=== PATIENT | female | born 1955 ===

== ENCOUNTER 2020-07-26 15:49 | Emergency (ER) | payer BC, SELFPAY ==
[2020-07-26 18:09] VITALS: BP 136/81; PULSE 97; RESP 18; TEMP 37.4; O2SAT 96; BMI 26.4
--- NOTE | 2020-07-26 23:19 | ED.GENADULT ---
HPI - General Adult General Chief complaint: Upper Respiratory Symptoms Stated complaint: Body aches/+Covid Time Seen by Provider: 07/26/20 23:19 Source: patient Mode of arrival: ambulatory Limitations: no limitations History of Present Illness HPI narrative: Patient with COVID 19 diagnosis for last 6 days comes here for increased body aches tiredness no significant shortness of breath no cough no fever/ chills Related Data Previous Rx's Medication Instructions Recorded dexamethasone [Decadron] 6 mg PO DAILY #7 tab 07/26/20 Allergies Allergy/AdvReac Type Severity Reaction Status Date / Time No Known Allergies Allergy Unverified 12/22/19 16:19 [No Known Allergies*] Review of Systems Review of Systems: Constitutional : No Weight loss, No Fever, No Chills ENT/Mouth : No sore throat, No Rhinorrhea Eyes: No Eye Pain, No Swelling Cardiovascular : No Chest Pain, no palpitations Respiratory : No Cough, No Sputum, no shortness of breath Gastrointestinal : no Nausea, No Vomiting, No Diarrhea, No abdominal Pain, no black stools Genitourinary : No Dysuria, No Urinary Frequency Musculoskeletal : No joint pain, No Myalgias, No Joint Swelling Skin : No Skin Lesions, No rash Neuro : + Weakness, No Numbness, No Dizziness, No Headache Psych : No Anxiety/Panic, No Depression Heme/Lymph: No Bruising, No Lymphadenopathy Endocrine : No Polyuria, No Polydipsia All other systems reviewed and are negative [facility] Past Medical History Medical History No known health problems Social History Social History Advance Directives: No Advance Directives Information Provided: No Physical Exam Vital Signs: Vital Signs: Last Vital Signs Temp 99.4 F 07/26/20 18:09 Pulse 97 07/26/20 18:09 Resp 18 07/26/20 18:09 BP 136/81 07/26/20 18:09 Pulse Ox 96 07/26/20 18:09 Body Mass Index 26.4 Appearance: Alert. Oriented X3. No acute distress. Eyes: Pupils equal, round and reactive to light. ENT: Pharynx normal. Neck: Normal inspection. Neck supple. CVS: Normal heart rate and rhythm. Pulses normal. Respiratory: No respiratory distress. Breath sounds normal. Abdomen: Soft and nontender. Bowel sounds are present, no mass palpable, no CVA tenderness Skin: Skin warm and dry. Normal skin color. Normal skin turgor. Extremities: No lower extremity edema. Neuro: Oriented X 3. No motor deficit. No sensory deficit. Medical Decision Making MDM Narrative Medical decision making narrative: Patient's COVID-19 infection asymptomatic except body aches saturating 96% at room air discharge her home on Decadron because of higher risk of inflammatory response because of her age Discharge Plan Discharge Clinical Impression: COVID-19 Patient Disposition: Home, Self-Care Instructions: COVID-19 (Coronavirus Disease 2019) (ED) Additional Instructions: Drink plenty of fluids social distancing is advised take medicine as prescribed. Report to the ER if increased shortness of breath Prescriptions: New dexamethasone [Decadron] 6 mg tablet 6 mg PO DAILY Qty: 7 RF: 0
[2020-07-26] MEDS: dexAMETHasone 6 MG TABLET PO (23:32)
[2020-07-26 23:37] VITALS: PULSE 72; O2SAT 97
== END 2020-07-26 23:39 | disposition home or self-care (01) ==
PROVIDERS: Emergency Provider Internal Medicine
DX: U07.1 COVID-19 (principal); M79.18 Myalgia, other site
CPT/HCPCS: 99283; 99284; J8540

== ENCOUNTER 2023-06-08 07:59 | Outpatient (AMB) | payer BC, SELFPAY ==
[2023-06-08 08:04] VITALS: BP 118/76; PULSE 78; O2SAT 97; BMI 22.8
--- NOTE | 2023-06-08 08:04 | A.OFFPC_ITS ---
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 Pt states that last time she saw a doctor since 2013. Allergies No Known Allergies [No Known Allergies*] Allergy (Unverified 06/08/23 08:30) Medication List - Last Reconciled 06/08/23 by MARNI Heredia No Known Home Meds Tobacco use date assessed: 06/08/23 Fall risk assessment: No Falls in past year Last assessed Fall Risk: 06/08/23 Dental Screening Dental Screen Date: 06/08/23 Did you have a dental visit in the last 12 months?: No Did you have a dental problem in the last 6 months where you did not have access to dental care?: No Was dental information given to patient?: Patient declined HPI HPI Comments History of Present Illness Details Patient is a 67-year-old female here to establish care. She has not seen a primary care provider in 10 years. She does get mammograms at [facility], she will send us information. She is declining OBGYN and Pap smear. Patient is declining vaccines including pneumonia vaccine. Patient is due for colonoscopy, she has declined. She has agreed to do Cologuard. Will refer for bone density scan. Patient states she has no known medical history. Only surgical history is C- section. 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 Will order fasting labs. [facility] Medical History No known health problems Surgical History Hx of section Family History Father No problems noted. Mother Hypertension Social History Housing: Apartment Patient Tobacco Use Status: Never used Tobacco e-Cigarette/Vaping Use: Never Used Current occupational status: employed Cognitive needs: No Hearing needs: No Vision needs: Yes Questionnaire PHQ-9 Over the last 2 weeks, how often have you been bothered by any of the following problems? 1. Little interest or pleasure in doing things: not at all 2. Feeling down, depressed, or hopeless: not at all 3. Trouble falling or staying asleep, or sleeping too much: not at all 4. Feeling tired or having little energy: not at all 5. Poor appetite or overeating: not at all 6. Feeling bad about yourself - or that you are a failure or have let yourself or your family down: not at all 7. Trouble concentrating on things, such as reading the newspaper or watching television: not at all 8. Moving or speaking so slowly that other people could have noticed. Or the op posite - being so fidgety or restless that you have been moving around a lot more than usual: not at all 9. Thoughts that you would be better off or of hurting yourself in some way: not at all Total score: 0 Depression Screening Interpretation: Negative Depression Screening Done: Yes Source: Developed by Drs. Mc Carl, Janett Keita, Kain Bautista and colleagues, with an educational carri from [employer]. Thrive Questionnaire Date Thrive assessed: 06/08/23 I am a: Patient What is your living situation today?: I have a steady place to live Within the past 12 months, did the food you bought not last and you didn't have the money to get more?: Never true Within the past 12 months, did you worry whether your food would run out before you got money to buy more?: Never true Do you have trouble paying for medicines?: No Do you have trouble getting transportation to medical appointments?: No Do you have trouble paying your heating and electricity bill?: No Do you have trouble taking care of your child, family member or friend?: No Do you have trouble with day-to-day activities such as bathing, preparing meals, shopping, managing finances, etc.?: No Are you currently unemployed and looking for a job?: No Are you interested in more education?: No Please select the resources that you would like help with: None THRIVE Score: 0 AUDIT C Alcohol Use Questionnaire (AUDIT-C) 1. How often do you have a drink containing alcohol?: Monthly or less 2. How many drinks containing alcohol do you have on a typical day when you are drinking?: 1 or 2 3. How often do you have six or more drinks on one occasion?: Never Total Score: 1 SB-7 AMB Questionnaire SB-7 Date SB - 7 assessed: 06/08/23 Feeling nervous, anxious, or on edge: 0 = Not at all Not being able to stop or control worryin = Not at all Worrying too much about different things: 1 = Several days Trouble relaxin = Not at all Being so restless that it is hard to sit still: 0 = Not at all Becoming easily annoyed or irritable: 0 = Not at all Feeling afraid as if something awful might happen: 0 = Not at all Total SB-7 score (0-4 normal; 5-9 mild; 10-14 moderate; 15-21 severe): 1 Source: Developed by Drs. Mc Carl, Janett Keita, Kain Bautista and colleagues, with an educational carri from [employer]. Review of Systems Const Details: Constitutional : No Weight loss, No Fever, No Chills, No Fatigue, No Malaise ENT/Mouth : No sore throat, No Rhinorrhea Eyes: No Eye Pain, No Swelling, No Redness Cardiovascular : No Chest Pain, No SOB, No Dyspnea on Exertion, No Orthopnea, No Edema, No Palpitations Respiratory : No Cough, No Sputum, No Wheezing Gastrointestinal : No Nausea, No Vomiting, No Diarrhea, No Constipation, No abdominal Pain, No Hematochezia, No Melena Genitourinary : No Dysuria, No Urinary Frequency, No Hematuria, Musculoskeletal : No joint pain, No Myalgias, No Joint Swelling Skin : No Skin Lesions, No rash Neuro : No Weakness, No Numbness, No Dizziness, No Headache Psych : No Anxiety/Panic, No Depression Heme/Lymph: No Bruising, No Bleeding,No Lymphadenopathy Endocrine : No Polyuria, No Polydipsia All other systems reviewed and are negative Physical exam (Primary Care) Vital Signs: Last Vital Signs Pulse 78 06/08/23 08:04 BP 118/76 06/08/23 08:04 Pulse Ox 97 06/08/23 08:04 Oxygen Delivery Method Room Air 06/08/23 08:04 BMI result Body Mass Index 22.8 Tobacco/Smoking Status: Tobacco use Status Tobacco use date assessed 06/08/23 06/08/23 08:09 Patient Tobacco Use Status Never used Tobacco 06/08/23 08:09 e-Cigarette/Vaping Use Never Used 06/08/23 08:09 Depression Screening Interpretation: Negative Const Other: Appearance: Alert.? Oriented X3.? No acute distress.? Head: Normocephalic, atraumatic. Neck: Normal inspection.? Neck supple.? CVS: Normal heart rate and rhythm.? Pulses normal.? Respiratory: No respiratory distress.? Breath sounds normal.? Skin: Skin warm and dry.? Normal skin color.? Normal skin turgor.? Extremities: No lower extremity edema.? No calf ttp. 5/5 strength to bilateral upper and lower extremities Back: No midline tenderness, no C-spine tenderness, full range of motion, no CVA tenderness bilaterally Neuro: Oriented X 3.? No motor deficit.? No sensory deficit. CN 2-12 intact Assessment and Plan Assessment & Plan (1) Post-menopausal: Comment: Will refer patient to Bone density scan. Code(s): Z78.0 - Asymptomatic menopausal state Plan: Patient will draw fasting labs. Plan Follow-up in 5-6 months with physical exam. Orders: Orders Complete Blood Count Auto Diff Today Z13.0 - Encounter for screening for diseases of the blood and blood-forming organs and certain disorders involving the immune mechanism Lipid Panel Today Z13.220 - Encounter for screening for lipoid disorders Vitamin D 25-OH (D2 and D3) Today Z13.21 - Encounter for screening for nutritional disorder UA CC w/rflx Micro + Cult Today Z13.89 - Encounter for screening for other disorder TSH reflex Free T4 Today Z13.29 - Encounter for screening for other suspected endocrine disorder Comprehensive Met. Panel Today Z91.89 - Other specified personal risk factors, not elsewhere classified Vitamin B6 Today Z13.21 - Encounter for screening for nutritional disorder Vitamin B12 Today Z13.21 - Encounter for screening for nutritional disorder XR DEXA axial skeleton Today Z78.0 - Asymptomatic menopausal state Referrals Cologuard Test Z12.11 - Encounter for screening for malignant neoplasm of colon, Z12.12 - Encounter for screening for malignant neoplasm of rectum Coding Level of Care Code Est Pt Level 3 (86402) Diagnoses Post-menopausal Z78.0 Time Spent (min) 30
== END 2023-06-08 09:26 | disposition home or self-care (01) ==
PROVIDERS: Visit Provider Nurse Practitioner Primary Care
DX: Z78.0 Asymptomatic menopausal state (principal)
CPT/HCPCS: 99213

== ENCOUNTER 2023-06-08 08:38 | Outpatient (REF) | payer BC, SELFPAY ==
[2023-06-08 11:17] LABS: MANUAL DIFF FLAG NO
[2023-06-08 11:24] LABS: Basophils Percent Auto 0.6 % (0-2); Eosinophils Absolute Auto 0.1 X10*3/uL (0.0-0.4); Eosinophils Percent Auto 1.4 % (0-4); Hematocrit 44.7 % (37.0-47.0); Hemoglobin 15.2 g/dl (12.0-16.0); Imm Gran Abs Auto 0.02 X10*3/uL (0.00-0.03); Imm Gran Pct Auto 0.3 % (0.0-0.4); Lymphocytes Absolute Auto 2.7 X10*3/uL (1.2-4.9); Lymphocytes Percent Auto 42.2 % (20-40); Mean Corpuscular Hemoglobin 30.8 pg (27.0-33.0); Mean Corpuscular Volume 90.5 fL (80.0-98.0); Mean Platelet Volume 10.2 fL (9.4-12.3); Monocytes Absolute Auto 0.4 X10*3/uL (0.1-1.2); Monocytes Percent Auto 6.6 % (2-11); Neutrophils Absolute Auto 3.2 x10*3/uL (2.0-8.3); Neutrophils Percent Auto 48.9 % (45-73); Platelet Count 350 X10*3/uL (160-400); Red Blood Count 4.94 X10*6/uL (4.20-5.50); Red Cell Distribution Width 12.2 % (11.0-16.0); White Blood Count 6.5 X10*3/uL (4.8-10.8)
[2023-06-08 12:11] LABS: Appearance Urine Cloudy; Color Urine Yellow; Glucose Urine UA >=1000 mg/dL (Negative); Leukocyte Esterase Urine Negative (Negative); Nitrite Urine Negative (Negative); UMIC TRIGGER UACC YES; Urine Blood Negative (Negative); Urine Ketones Negative (Negative); Urine Protein Negative (Neg-Trace)
[2023-06-08 12:21] LABS: Alanine Aminotransferase 17 U/L (0-31); Alkaline Phosphatase 171 U/L (39-117); Anion Gap 11 (12-20); Aspartate Amino Transferase 15 U/L (5-31); Bilirubin Total 1.4 mg/dL (0.0-1.0); Blood Urea Nitrogen 9 mg/dL (9-16); Calcium 9.5 mg/dL (8.4-10.2); Carbon Dioxide 28 mmol/L (22-29); Chloride 101 mmol/L (96-108); Cholesterol 239 mg/dL (<200); Estimated Glomerular Filt Rate > 60; Glucose Random 268 mg/dL (60-115); HDL Cholesterol 67 mg/dL (>40); LDL Cholesterol Calculated 143 mg/dL (<100); Potassium 3.4 mmol/L (3.3-5.1); Sodium 137 mmol/L (135-145); TSH reflex Free T4 2.02 uIU/mL (0.32-4.0); Total Protein 7.7 g/dL (6.5-8.0); Triglycerides 146 mg/dL (<150)
[2023-06-08 12:27] LABS: Vitamin B12 397 pg/mL (200-900)
[2023-06-08 12:38] LABS: Bacteria Urine None Seen (None Seen); Hyaline Casts Urine 0-2 /LPF (0-2); RBC Urine 0-2 /HPF (0-2); WBC Urine 0-5 /HPF (0-5)
[2023-06-10 15:29] LABS: Estimated Average Glucose 240 mg/dL
[2023-06-12 15:24] LABS: Vitamin D 25-OH, D2 <4 ng/mL; Vitamin D 25-OH, D3 25 ng/mL; Vitamin D 25-OH, Total 25 ng/mL (30-100)
[2023-06-14 15:12] LABS: Vitamin B6 8.7 ng/mL (2.1-21.7)
== END 2023-06-08 08:39 | disposition home or self-care (01) ==
LOC: HO.HMGCLDS 08:38
PROVIDERS: PCP Nurse Practitioner Primary Care; Visit Provider Nurse Practitioner Primary Care
DX: Z13.0 Encounter for screening for diseases of the blood and blood-forming organs and certain disorders involving the immune mechanism (principal); Z13.220 Encounter for screening for lipoid disorders; Z13.6 Encounter for screening for cardiovascular disorders; Z13.21 Encounter for screening for nutritional disorder; Z13.29 Encounter for screening for other suspected endocrine disorder; Z91.89 Other specified personal risk factors, not elsewhere classified
CPT/HCPCS: 36415; 80053; 80061; 81001; 81003; 82306; 82607; 83036; 84207; 84443; 85025

== ENCOUNTER 2023-06-17 13:22 | Outpatient (AMB) | payer BC, SELFPAY ==
--- NOTE | 2023-06-17 13:25 | MHC.PC.OV ---
Vital Signs 06/17/23 13:28 Height 5 ft Weight 118 lb 8 oz BMI 23.1 BP 130/78 Blood Pressure Location Rt brachial Position Sitting Pulse 80 Pulse Source Pulse Oximeter Pulse Oximetry (%) 98 Oxygen Delivery Method Room Air Intake Visit Reasons: New DX DM per Fab Dunn Note: Pt is here for new Dx for DM and to go over her labs Allergies No Known Allergies [No Known Allergies*] Allergy (Unverified 06/17/23 14:02) Medication List - Last Reconciled 06/17/23 by MARNI Heredia atorvastatin 20 mg PO DAILY blood sugar diagnostic (FreeStyle Lite Strips) Check BS Morning and Night blood-glucose meter (FreeStyle Lite Meter kit) As directed lancets (FreeStyle Lancets) As directed metformin 500 mg PO BID Tobacco use date assessed: 06/17/23 Fall risk assessment: No Falls in past year Last assessed Fall Risk: 06/17/23 Dental Screening Dental Screen Date: 06/17/23 Did you have a dental visit in the last 12 months?: No Did you have a dental problem in the last 6 months where you did not have access to dental care?: No Was dental information given to patient?: No HPI HPI Comments History of Present Illness Details Patient is a 67-year-old female in today for a new diagnosis of diabetes type 2. Patient had recent blood draw which demonstrated A1c of 10.0. She also has elevated cholesterol levels, will start today on atorvastatin. Patient denies symptoms of polyuria, polydipsia. Patient denies chest pain, dizziness, nausea, vomiting, diarrhea. Patient denies any numbness or tingling. Patient be started on atorvastatin, and metformin. Patient is declining BP medication at this time. She is going to take blood sugar measurements and blood pressure measurements over the next 2 week will call the office with her values. Patient has optometry appointment in the fall, she will send us records. Patient is denying podiatry referral at this time. [facility] Medical History (Updated 06/17/23 @ 14:15 by MARNI Heredia) No known health problems Surgical History Hx of section Family History Father No problems noted. Mother Hypertension Social History Housing: Apartment Patient Tobacco Use Status: Never used Tobacco e-Cigarette/Vaping Use: Never Used Current occupational status: employed Cognitive needs: No Hearing needs: No Vision needs: Yes Questionnaire Thrive Questionnaire Date Thrive assessed: 06/08/23 SB-7 AMB Questionnaire SB-7 Date SB - 7 assessed: 06/08/23 Source: Developed by Drs. Mc Carl, Janett Keita, Kain Bautista and colleagues, with an educational carri from [employer]. Review of Systems Const All systems reviewed & are unremarkable except as noted in HPI and below Eyes Denies blurry vision Card Denies chest pain and Denies dyspnea Resp Denies chest congestion and Denies dyspnea GI Denies abdominal pain Musc Denies numbness and Denies tingling Neuro Denies numbness and Denies tingling Endo Denies polydipsia and Denies polyuria Physical exam (Primary Care) Vital Signs: Last Vital Signs Pulse 80 06/17/23 13:28 BP 130/78 06/17/23 13:28 Pulse Ox 98 06/17/23 13:28 Oxygen Delivery Method Room Air 06/17/23 13:28 Care Plan Goal for BP management: Patient will take BP measurements at home. Next steps: Patient will call office with values in 2 weeks BMI result Body Mass Index 23.1 Tobacco/Smoking Status: Tobacco use Status Tobacco use date assessed 06/17/23 06/17/23 13:33 Patient Tobacco Use Status Never used Tobacco 06/17/23 13:27 e-Cigarette/Vaping Use Never Used 06/17/23 13:27 Thrive Assessment: Date of Thrive Assessment Date Thrive assessed 06/08/23 06/17/23 13:27 Const Other: Appearance: Alert.? Oriented X3.? No acute distress.? Head: Normocephalic, atraumatic. Eyes: Pupils equal, round and reactive to light.?No photophobia. Neck: Normal inspection.? Neck supple.? CVS: Normal heart rate and rhythm.? Pulses normal.? Respiratory: No respiratory distress.? Breath sounds normal.? Skin: Skin warm and dry.? Normal skin color.? Normal skin turgor.? Neuro: Oriented X 3.? No motor deficit.? No sensory deficit. CN 2-12 intact Assessment and Plan Assessment & Plan (1) Diabetes type 2, no ocular involvement: Comment: Patient being started on metformin 500 mg b.i.d. will start atorvastatin 20 mg p.o. daily. Patient is declining [place] or Arb at this time. Patient is declining podiatry. Patient has ophthalmology appointment in the fall. Patient has been educated on the side effects of these medications. Patient declined meeting with nurse navigator for diabetic Education. Code(s): E11.9 - Type 2 diabetes mellitus without complications Plan: Take your medications as prescribed. If you were prescribed antibiotics today, it is important that you take your medication to their entirety, do not skip any doses, do not finish them early. Follow-up with your primary care provider this week. Return to the emergency department with new or worsening symptoms. Such as fevers, chills, chest pain, shortness of breath, nausea, vomiting, dizziness, headache, vision changes, lethargy In case of emergency call 911 (2) Hyperlipidemia: Comment: Patient started atorvastatin 20 mg p.o. daily. Will redraw lipid panel in 3 months Code(s): E78.5 - Hyperlipidemia, unspecified Qualifiers: Hyperlipidemia type: unspecified Qualified Code(s): E78.5 - Hyperlipidemia, unspecified Plan: Follow-up in 3 months. Coding Level of Care Code Est Pt Level 4 (35101) Diagnoses Diabetes type 2, no ocular involvement E11.9 Hyperlipidemia, unspecified hyperlipidemia type E78.5 Hyperlipidemia type: unspecified Time Spent (min) 35
[2023-06-17 13:28] VITALS: BP 130/78; PULSE 80; O2SAT 98; BMI 23.1
== END 2023-06-17 15:58 | disposition home or self-care (01) ==
PROVIDERS: PCP Nurse Practitioner Primary Care; Visit Provider Nurse Practitioner Primary Care
DX: E11.9 Type 2 diabetes mellitus without complications (principal); E78.5 Hyperlipidemia, unspecified
CPT/HCPCS: 99214

== ENCOUNTER 2023-07-03 10:51 | Outpatient (REF) | payer BC, SELFPAY ==
--- NOTE | ~2023-07-03 | MM_ITS ---
EXAMINATION: BONE DENSITOMETRY CLINICAL INDICATION: Asymptomatic menopausal state. COMPARISON: This is the patient's baseline examination. TECHNIQUE: Using a Viewster DXA System (software version: 13.1) manufactured by [employer], dual-energy x-ray absorptiometry was performed of the lumbar spine and left hip. The images are of good technical quality. Summary results are attached. FINDINGS: AP SPINE L1-L4: BMD 0.929 g/cm2, Z-score -0.1, T-score -2.1, osteopenia. LEFT FEMUR, NECK: BMD 0.743 g/cm2, Z-score -0.4, T-score -2.1, osteopenia. LEFT FEMUR, TOTAL: BMD 0.680 g/cm2, Z-score -1.1, T-score -2.6, osteoporosis. IDENTIFIED RISK FACTORS: Menopause. HISTORY OF FRACTURE: None listed. MEDICATIONS: None listed. MM/XR DEXA axial skeleton IMPRESSION: 1. DIAGNOSIS: Osteoporosis based on the lowest T-score value of -2.6 in the total femur applying World Health Organization criteria. 2. 10-YEAR FRACTURE RISK PREDICTION, FRAX: According to the guidelines, FRAX calculation should only be performed on patients in the osteopenia bone density category.?Therefore, FRAX was not performed on this patient.? 3. Treatment Recommendations: NOF guidelines recommend consideration for treatment in postmenopausal women and men age 50 and older presenting with the following: -A hip or vertebral (clinical or morphometric) fracture. -T-score less than or equal to -2.5 at the femoral neck or spine after appropriate evaluation to exclude secondary causes. -Low bone mass at the hip or spine and a 10-year fracture probability by FRAX of greater than or equal to 3% for hip fracture or greater than or equal to 20% for major osteoporotic fracture based on the [place] adapted WHO algorithm. 4. Other Recommendations: All treatment decisions require clinical judgment and consideration of individual patient factors, including patient preferences, comorbidities, previous drug use, risk factors not captured in the FRAX model (e.g. frailty, falls, vitamin D deficiency, increased bone turnover, interval significant decline in bone density) and possible under or overestimation of fracture risk by FRAX. Additional medical evaluation for secondary cause of low bone mineral density may be appropriate. FUTURE SCAN RECOMMENDATION: People with diagnosed cases of osteoporosis or at high risk for fracture should have regular bone mineral density tests. For patients eligible for Medicare, routine testing is allowed once every 2 years. The testing frequency can be increased to one year for patients who have rapidly progressing disease, those who are receiving or discontinuing medical therapy to restore bone mass, or have additional risk factors.
== END 2023-07-03 10:52 | disposition home or self-care (01) ==
LOC: HO.MAMMO 10:51
PROVIDERS: PCP Nurse Practitioner Primary Care; Visit Provider Nurse Practitioner Primary Care
DX: Z13.820 Encounter for screening for osteoporosis (principal); Z78.0 Asymptomatic menopausal state
CPT/HCPCS: 77080

== ENCOUNTER 2023-09-16 14:09 | Outpatient (AMB) | payer BC, SELFPAY ==
--- NOTE | 2023-09-16 14:24 | A.OFFPC_ITS ---
Vital Signs 09/16/23 14:25 Height 5 ft Weight 115 lb BMI 22.5 BP 120/72 Blood Pressure Location Rt brachial Position Sitting Pulse 77 Pulse Source Pulse Oximeter Pulse Oximetry (%) 99 Oxygen Delivery Method Room Air Intake Visit Reasons: 3 month follow up DM Intake Note: pt here for 3 mo f/u DM Allergies No Known Allergies [No Known Allergies*] Allergy (Unverified 09/16/23 14:41) Medication List - Last Reconciled 09/16/23 by MARNI Heredia blood sugar diagnostic (FreeStyle Lite Strips) Check BS Morning and Night blood-glucose meter (FreeStyle Lite Meter kit) As directed lancets (FreeStyle Lancets) As directed Tobacco use date assessed: 09/16/23 Dental Screening Dental Screen Date: 06/17/23 HPI HPI Comments History of Present Illness Details Patient is a 67-year-old female in today for a diabetic follow-up. She is up-to-date with ophthalmology, declining digital project coordinator. She is due for microalbumin, will order. Patient had recent positive Cologuard test but she is declining colonoscopy. Up-to-date with mammograms, gets them [facility], will get report. She has stopped taking her p.o. medications including metformin, Farxiga, atorvastatin, lisinopril. States she does not like taking medications. Her A1c is 9.1 in office today down from 10.0 3 months prior. Reports she takes her blood sugars at least once per day. Denies symptoms of neurolagia, polyuria or polydipsia Patient is also completed bone density scan which showed osteoporosis, she is willing to start Alendronate because it is only taken once per week, [facility] Medical History No known health problems Surgical History Hx of section Family History Father No problems noted. Mother Hypertension Social History Housing: Apartment Patient Tobacco Use Status: Never used Tobacco e-Cigarette/Vaping Use: Never Used Current occupational status: employed Cognitive needs: No Hearing needs: No Vision needs: Yes Questionnaire Thrive Questionnaire Date Thrive assessed: 06/08/23 AUDIT C Alcohol Use Questionnaire (AUDIT-C) 1. How often do you have a drink containing alcohol?: Monthly or less 2. How many drinks containing alcohol do you have on a typical day when you are drinking?: 1 or 2 3. How often do you have six or more drinks on one occasion?: Never Total Score: 1 SB-7 AMB Questionnaire SB-7 Date SB - 7 assessed: 06/08/23 Source: Developed by Drs. Mc Carl, Janett Keita, Kain Bautista and colleagues, with an educational carri from [employer]. Review of Systems Const All systems reviewed & are unremarkable except as noted in HPI and below Musc Reports muscle cramps (right arm) Physical exam (Primary Care) Vital Signs: Last Vital Signs Pulse 77 09/16/23 14:25 BP 120/72 09/16/23 14:25 Pulse Ox 99 09/16/23 14:25 Oxygen Delivery Method Room Air 09/16/23 14:25 Care Plan Goal for BP management: BP is controlled. BMI result Body Mass Index 22.5 Tobacco/Smoking Status: Tobacco use Status Tobacco use date assessed 09/16/23 09/16/23 14:27 Patient Tobacco Use Status Never used Tobacco 09/16/23 14:27 e-Cigarette/Vaping Use Never Used 09/16/23 14:27 Thrive Assessment: Date of Thrive Assessment Date Thrive assessed 06/08/23 09/16/23 14:27 Const Other: Appearance: Alert.? Oriented X3.? No acute distress.? Head: Normocephalic. CVS: Normal heart rate and rhythm.? Pulses normal.? Respiratory: No respiratory distress.? Breath sounds normal.? Skin: Skin warm and dry.? Normal skin color.? Extremities: No lower extremity edema. 5/5 strength to bilateral upper and lower extremities. Full ROM of extremities. Some point tenderness to right humerus near deltoid tuberosity. Neuro: Oriented X 3.? No motor deficit.? No sensory deficit. CN 2-12 intact Results AMB Hemoglobin A1c AMB Hemoglobin A1c 9.1 % Last Edit by Elkin Turner CMA on 09/16/23 14:44 Results Reviewed Results Reviewed: FINDINGS: AP SPINE L1-L4: BMD 0.929 g/cm2, Z-score -0.1, T-score -2.1, osteopenia. LEFT FEMUR, NECK: BMD 0.743 g/cm2, Z-score -0.4, T-score -2.1, osteopenia. LEFT FEMUR, TOTAL: BMD 0.680 g/cm2, Z-score -1.1, T-score -2.6, osteoporosis. Assessment and Plan Assessment & Plan (1) Right arm pain: Comment: Will order right humerus x-ray. Seems muscular in nature. Will give cyclobenzaprine 5 mg p.o. to be taken at night. Patient has no obvious deformity of the arm. Full range of motion. Recently started working job that is physically demanding Code(s): M79.601 - Pain in right arm (2) Hyperlipidemia: Comment: Patient has stopped taking atorvastatin 20 mg p.o. daily on her own accord. She reports that she will take it 3 times per week. Code(s): E78.5 - Hyperlipidemia, unspecified Qualifiers: Hyperlipidemia type: unspecified Qualified Code(s): E78.5 - Hyperlipidemia, unspecified (3) Osteoporosis: Comment: Bone density scan revealed osteoporosis of the left femur. Patient has agreed to start Alendronate 70 mg PO Qweekly. Code(s): M81.0 - Age-related osteoporosis without current pathological fracture Qualifiers: Osteoporosis type: unspecified Presence of current pathological fracture: unspecified Qualified Code(s): M81.0 - Age-related osteoporosis without current pathological fracture (4) Diabetes type 2, no ocular involvement: Comment: Patient has agreed to restart 500 mg p.o. metformin b.i.d.. She has declined [place] or Arb. She is unwilling to try other medications Code(s): E11.9 - Type 2 diabetes mellitus without complications Orders: Orders Lipid Panel Today Z13.220 - Encounter for screening for lipoid disorders Complete Blood Count Auto Diff Today Z13.0 - Encounter for screening for diseases of the blood and blood-forming organs and certain disorders involving the immune mechanism Microalbumin, Random (w Creat) Today E11.9 - Type 2 diabetes mellitus without complications Comprehensive Met. Panel Today Z91.89 - Other specified personal risk factors, not elsewhere classified AMB Hemoglobin A1c Today E11.9 - Type 2 diabetes mellitus without complications XR humerus RT Today M79.601 - Pain in right arm Medications: New alendronate 70 mg PO QWEEK 13 tabs 0RF metformin 500 mg PO BID 180 tabs 0RF cyclobenzaprine 5 mg PO BEDTIME PRN 20 tabs 0RF muscle spasm Coding Level of Care Code Est Pt Level 3 (55208) Diagnoses Right arm pain M79.601 Hyperlipidemia, unspecified hyperlipidemia type E78.5 Hyperlipidemia type: unspecified Osteoporosis, unspecified osteoporosis type, unspecified pathological fracture presence M81.0 Osteoporosis type: unspecified Presence of current pathological fracture: unspecified Diabetes type 2, no ocular involvement E11.9 Time Spent (min) 28
[2023-09-16 14:25] VITALS: BP 120/72; PULSE 77; O2SAT 99; BMI 22.5
== END 2023-09-16 15:21 | disposition home or self-care (01) ==
PROVIDERS: PCP Nurse Practitioner Primary Care; Visit Provider Nurse Practitioner Primary Care
DX: M79.601 Pain in right arm (principal); E78.5 Hyperlipidemia, unspecified; M81.0 Age-related osteoporosis without current pathological fracture; E11.9 Type 2 diabetes mellitus without complications
CPT/HCPCS: 83036; 99213

== ENCOUNTER 2024-04-05 07:54 | Outpatient (AMB) | payer BC, SELFPAY ==
[2024-04-05 07:58] VITALS: BP 108/68; PULSE 85; O2SAT 99; BMI 22.8
--- NOTE | 2024-04-05 07:58 | MHC.PC.OV ---
Vital Signs 04/05/24 07:58 Height 5 ft Weight 117 lb BMI 22.8 BP 108/68 Blood Pressure Location Lt brachial Position Sitting Pulse 85 Pulse Source Pulse Oximeter Pulse Oximetry (%) 99 Oxygen Delivery Method Room Air Intake Visit Reasons: Annual PE Intake Note: Pt is here today for PE. Allergies No Known Allergies [No Known Allergies*] Allergy (Unverified 04/05/24 07:59) Medication List - Last Reconciled 04/05/24 by Shanell North MD blood sugar diagnostic (FreeStyle Lite Strips) Check BS Morning and Night blood-glucose meter (FreeStyle Lite Meter kit) As directed lancets (FreeStyle Lancets) As directed metformin 500 mg PO BID Tobacco use date assessed: 04/05/24 Fall risk assessment: No Falls in past year Last assessed Fall Risk: 04/05/24 Dental Screening Dental Screen Date: 04/05/24 Did you have a dental visit in the last 12 months?: No Did you have a dental problem in the last 6 months where you did not have access to dental care?: No Was dental information given to patient?: Patient declined HPI Annual PE HPI Details Pt presents for PE. Past medical history includes type 2 diabetes and osteoporosis. Patient has been following ADA diet and checking blood glucose occasionally with the readings between 130 to 150. [facility] Medical History (Updated 04/05/24 @ 09:09 by Shanell North MD) No known health problems Surgical History Hx of section Family History (Updated 04/05/24 @ 08:10 by Shanell North MD) Father No problems noted. Mother Hypertension Hyperlipidemia Social History Housing: Apartment Patient Tobacco Use Status: Never used Tobacco e-Cigarette/Vaping Use: Never Used service: No Current occupational status: employed Cognitive needs: No Hearing needs: No Vision needs: Yes Questionnaire PHQ-9 Over the last 2 weeks, how often have you been bothered by any of the following problems? 1. Little interest or pleasure in doing things: not at all 2. Feeling down, depressed, or hopeless: not at all 3. Trouble falling or staying asleep, or sleeping too much: not at all 4. Feeling tired or having little energy: not at all 5. Poor appetite or overeating: not at all 6. Feeling bad about yourself - or that you are a failure or have let yourself or your family down: not at all 7. Trouble concentrating on things, such as reading the newspaper or watching television: not at all 8. Moving or speaking so slowly that other people could have noticed. Or the opposite - being so fidgety or restless that you have been moving around a lot more than usual: not at all 9. Thoughts that you would be better off or of hurting yourself in some way: not at all Total score: 0 Depression Screening Interpretation: Negative Depression Screening Done: Yes 55388 - PHQ-9 Billing: Yes Source: Developed by Drs. Mc Carl, Janett Keita, Kain Bautista and colleagues, with an educational carri from [employer]. Thrive Questionnaire Date Thrive assessed: 04/05/24 I am a: Patient What is your living situation today?: I have a steady place to live Within the past 12 months, did the food you bought not last and you didn't have the money to get more?: Never true Within the past 12 months, did you worry whether your food would run out before you got money to buy more?: Never true Do you have trouble paying for medicines?: Yes Do you have trouble getting transportation to medical appointments?: No Do you have trouble paying your heating and electricity bill?: No Do you have trouble taking care of your child, family member or friend?: No Do you have trouble with day-to-day activities such as bathing, preparing meals, shopping, managing finances, etc.?: No Are you currently unemployed and looking for a job?: No Are you interested in more education?: No Please select the resources that you would like help with: None Currently or been in a relationship where the following occur: No concerns reported THRIVE Score: 0 AUDIT C Alcohol Use Questionnaire (AUDIT-C) 1. How often do you have a drink containing alcohol?: Never 3. How often do you have six or more drinks on one occasion?: Never Total Score: 0 SB-7 AMB Questionnaire SB-7 Date SB - 7 assessed: 04/05/24 Feeling nervous, anxious, or on edge: 0 = Not at all Not being able to stop or control worryin = Not at all Worrying too much about different things: 0 = Not at all Trouble relaxin = Not at all Being so restless that it is hard to sit still: 0 = Not at all Becoming easily annoyed or irritable: 0 = Not at all Feeling afraid as if something awful might happen: 0 = Not at all Total SB-7 score (0-4 normal; 5-9 mild; 10-14 moderate; 15-21 severe): 0 Source: Developed by Drs. Mc Carl, Janett Keita, Kain Bautista and colleagues, with an educational carri from [employer]. SB-7 Assessment Billing SB-7 Assessment Tool: SB-7 Assessment 33741 Review of Systems Const All systems reviewed & are unremarkable except as noted in HPI and below Eyes Reports no additional complaints ENT Reports no additional complaints Card Reports no additional complaints Resp Reports no additional complaints GI Reports no additional complaints Reports no additional complaints Physical exam (Primary Care) Vital Signs: Last Vital Signs Pulse 85 04/05/24 07:58 BP 108/68 04/05/24 07:58 Pulse Ox 99 04/05/24 07:58 Oxygen Delivery Method Room Air 04/05/24 07:58 BMI result Body Mass Index 22.8 Tobacco/Smoking Status: Tobacco use Status Tobacco use date assessed 04/05/24 04/05/24 08:05 Patient Tobacco Use Status Never used Tobacco 04/05/24 08:05 e-Cigarette/Vaping Use Never Used 04/05/24 08:05 PHQ-9: PHQ-9 Score PHQ-9: Total score 0 04/05/24 08:05 Depression Screening Interpretation: Negative Thrive Assessment: Date of Thrive Assessment Date Thrive assessed 04/05/24 04/05/24 08:05 Currently or been in a relationship where the following occur: No concerns reported Const General: no acute distress HENMT Head: Yes normal to inspection Face and sinus: Yes normal facial exam Throat: Yes posterior oropharynx normal Eyes General: appearance normal, both eyes and all related structures Neck Neck: Yes no lymphadenopathy and Yes supple Resp Effort & Inspection: normal respiratory effort Auscultation: clear to auscultation bilaterally Cardio Rhythm: regular rhythm Heart sounds: S1 normal heart sound present and S2 normal heart sound present GI Inspection: Yes normal to inspection Palpation (GI): Soft to palpation Percussion: Yes normal to percussion Auscultation: normal bowel sounds Extrem Other: Diabetic foot exam: skin is intact, monofilament sensation intact bilaterally General: Yes no clubbing, cyanosis or edema Coding Level of Care Code Est Pt Prev Care >65y(83161) Diagnoses Diabetes type 2, no ocular involvement E11.9 Annual physical exam Z00.00 Hyperlipidemia, unspecified hyperlipidemia type E78.5 Hyperlipidemia type: unspecified Positive colorectal cancer screening using Cologuard test R19.5 Osteoporosis, unspecified osteoporosis type, unspecified pathological fracture presence M81.0 Osteoporosis type: unspecified Presence of current pathological fracture: unspecified Additional Codes SB-7 Assessment Billing - SB-7 Assessment Tool: SB-7 Assessment 11939 ([id number]) PHQ-9 - 02624 - PHQ-9 Billing: Yes ([id number]) Assessment & Plan Assessment & Plan (1) Diabetes type 2, no ocular involvement: Code(s): E11.9 - Type 2 diabetes mellitus without complications Category: Medical Plan: ADA diet regular exercise discussed with the patient. she will continue metformin, have blood work today, start monitoring her blood glucose and record the readings .patient will follow-up in 1 month (2) Annual physical exam: Code(s): Z00.00 - Encounter for general adult medical examination without abnormal findings Category: Medical Plan: Well-balanced diet regular physical activity discussed with the patient. She is up-to-date with the mammogram. She will be referred to GI for colonoscopy for positive Cologuard (3) Hyperlipidemia: Comment: Patient declined taking statin Code(s): E78.5 - Hyperlipidemia, unspecified Category: Medical Qualifiers: Hyperlipidemia type: unspecified Qualified Code(s): E78.5 - Hyperlipidemia, unspecified Plan: Check lipid profile (4) Positive colorectal cancer screening using Cologuard test: Code(s): R19.5 - Other fecal abnormalities Category: Medical Plan: Referred to GI for colonoscopy (5) Osteoporosis: Comment: DEXA 06/2023 T -score -2.6 Code(s): M81.0 - Age-related osteoporosis without current pathological fracture Category: Medical Qualifiers: Osteoporosis type: unspecified Presence of current pathological fracture: unspecified Qualified Code(s): M81.0 - Age-related osteoporosis without current pathological fracture Plan: Patient will restart Fosamax and vitamin-D 3, weight-bearing exercises discussed with the patient. Repeat DEXA in 2 years Orders: Orders Comprehensive Dickens. Panel Fast Today E11.9 - Type 2 diabetes mellitus without complications, E78.5 - Hyperlipidemia, unspecified, Z00.00 - Encounter for general adult medical examination without abnormal findings, Z92.89 - Personal history of other medical treatment Microalbumin, Random (w Creat) Today E11.9 - Type 2 diabetes mellitus without complications, E78.5 - Hyperlipidemia, unspecified, Z00.00 - Encounter for general adult medical examination without abnormal findings, Z92.89 - Personal history of other medical treatment Hemoglobin A1c Today E11.9 - Type 2 diabetes mellitus without complications, E78.5 - Hyperlipidemia, unspecified, Z00.00 - Encounter for general adult medical examination without abnormal findings, Z92.89 - Personal history of other medical treatment Complete Blood Count Auto Diff Today E11.9 - Type 2 diabetes mellitus without complications, E78.5 - Hyperlipidemia, unspecified, Z00.00 - Encounter for general adult medical examination without abnormal findings, Z92.89 - Personal history of other medical treatment Lipid Panel Today E11.9 - Type 2 diabetes mellitus without complications, E78.5 - Hyperlipidemia, unspecified, Z00.00 - Encounter for general adult medical examination without abnormal findings, Z92.89 - Personal history of other medical treatment Referrals Gastroenterology Referral R19.5 - Other fecal abnormalities Medications: New alendronate 70 mg PO QWEEK 10 tabs 3RF Refilled metformin 500 mg PO BID 180 tabs 3RF
== END 2024-04-05 08:41 | disposition home or self-care (01) ==
PROVIDERS: PCP Internal Medicine; Visit Provider Internal Medicine
DX: E11.9 Type 2 diabetes mellitus without complications (principal); Z00.00 Encounter for general adult medical examination without abnormal findings; E78.5 Hyperlipidemia, unspecified; R19.5 Other fecal abnormalities; M81.0 Age-related osteoporosis without current pathological fracture

== ENCOUNTER → 2024-05-11 10:15 | Outpatient (BNVA) | payer BC, SELFPAY | PROVIDERS: PCP Internal Medicine; Visit Provider Internal Medicine | DX: E11.9 Type 2 diabetes mellitus without complications (principal); E78.5 Hyperlipidemia, unspecified; R19.5 Other fecal abnormalities; M81.0 Age-related osteoporosis without current pathological fracture; Z79.84 Long term (current) use of oral hypoglycemic drugs | CPT/HCPCS: 96127 ==